=== PATIENT | female | born 1970 | race Caucasian/White ===

== ENCOUNTER 2019-06-19 16:39 | Emergency (ER) | payer OTHER, SELFPAY ==
[2019-06-19 16:42] VITALS: BP 133/74; PULSE 83; RESP 18; TEMP 36.4; O2SAT 99
--- NOTE | 2019-06-19 16:47 | ED.GENADUL_ITS ---
Discharge Plan Disposition Patient Disposition: HOME Condition: Stable Discharge Details Chief Complaint: Orthopedic Clinical Impression: Strain of left knee Primary Care Provider: Leo Hunter ED Provider: Milvia Duong Home Meds and New Rx's Prescriptions: Continued Premphase 1 EACH tablet 1 tab-cap PO DAILY RF: 0 ibuprofen 800 MG tablet 800 mg PO TID RF: 0 lamotrigine 25 mg Tablet 75 mg PO RF: 0 Discharge Instructions Instructions: Knee Sprain (ED) Additional Instructions: Rest, ice, and elevate the affected area as much as possible. Alternate tylenol and motrin as needed and directed for pain. Follow-up with your primary care doctor in 1 week for reevaluation and for re ferral to physical therapy if symptoms do not improve or worsen. Return to the emergency department with any worsening or new concerning symptoms. 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 States the pain only occurs when she is crossing her left knee over her right leg. She has been taking ibuprofen 800 mg. She denies any bony injury. Left knee normal to inspection. She has reproducible pain with varus stress. No evidence of trauma or cellulitis. No ligamentous laxity. Neurovascular intact. Discussed with patient that this appears consistent likely with knee strain versus arthritis. She was offered an x-ray but declines. Advised on importance of rest, ice, elevate, Bruce wrap and NSAIDs and Tylenol. Advised to follow-up with her primary care doctor for evaluation and for referral to physical therapy if symptoms do not improve or worsen. Usual and customary return precautions given prior to discharge. Discussed with patient that I do not see an indication for MRI at this time, but if her symptoms persist or worsen, this could be a consideration. HPI General Mode of arrival: ambulatory . Date/Time Provider Initiated Documentation: 06/19/19 16:40 . Limitations to Documentation: no limitations . Information obtained by: patient . History of Present Illness 49 year old F presents to the emergency department with the chief complaint of Left knee pain, Quality is described as aching, and is localized to the left and lower extremity (Knee). Patient reports no radiation. Patient started experiencing this week(s) (3) and it has been intermittent. Rest improves symptom(s), Movement worsens symptoms (When attempting to cross leg and put left foot onto right knee) . Patient notes no other symptoms.. Patient did receive the following treatments prior to arrival, none Related Data Home Medications Medication Instructions Recorded Confirmed ibuprofen 800 mg PO TID 07/11/12 06/19/19 Premphase 1 tab-cap PO DAILY tab-cap 09/28/15 06/19/19 lamotrigine 75 mg PO 06/19/19 Allergies Allergy/AdvReac Type Severity Reaction Status Date / Time No Known Allergies Allergy Unverified 06/19/19 16:47 General Stated Complaint: Orthopedic FLAQUITA: 3 Review of Systems All systems reviewed & are unremarkable except as noted in HPI and below PFSH Medical History (Updated 06/19/19 @ 17:31 by Milvia Duong DO) Depression longstanding use of Wellbutrin. H/O postmenopausal hormone replacement therapy 2014 initiated by PCP in hopes of improving pt's mood. Stopped 09/2015 after PMB. Tobacco use Surgical History (Updated 02/05/18 @ 14:34 by Fitly MD) section foot surgery fix nerves in heel. Ligation of fallopian tube at time of C/S Family History Mother , lung CA No problems noted. Brother , Diabetes No problems noted. Social History Smoking/Tobacco Use Status: Current every day Drug use: Never Do you feel safe at home: Yes Exam Const General: cooperative, healthy appearing and no acute distress [facility] Head: normal to inspection Mouth: oral mucosae normal Eyes General: appearance normal, both eyes and all related structures Neck Neck: normal visual inspection Resp Effort & Inspection: normal respiratory effort and able to speak in complete sentences Cardio Rate: regular rate Skin General skin exam: no rashes or lesions noted Neuro General: alert, awake and oriented x3 Motor: muscle tone normal throughout Extrem General: normal to inspection and full ROM Other: Left knee: Pain with varus stress. Negative anterior and posterior drawer test. Negative Tanisha's test. No pain with valgus stress. Left DP and PT pulses intact. No evidence of edema, ecchymosis, erythema. No li gamentous laxity. Posterior knee normal to palpation. No evidence of mass. No left calf swelling or tenderness. Psych Appearance: grossly normal Affect: normal affect Course Vital Signs Vital signs: Vital Signs Temperature 97.5 F L 06/19/19 16:42 Pulse 83 06/19/19 16:42 Respiratory Rate 18 06/19/19 16:42 Blood Pressure 133/74 06/19/19 16:42 Pulse Oximetry 99 06/19/19 16:42 Temperature 97.5 F L 06/19/19 16:42 Temperature Source Skin 06/19/19 16:42 Pulse 83 06/19/19 16:42 Respiratory Rate 18 06/19/19 16:42 Blood Pressure 133/74 06/19/19 16:42 Blood Pressure Position Sitting 06/19/19 16:42 Pulse Oximetry 99 06/19/19 16:42 Oxygen Delivery Method Room Air 06/19/19 16:42 Oxygen Flow Rate 0 06/19/19 16:42 Pain Level 9 06/19/19 16:42
[2019-06-19 17:41] VITALS: BP 133/74; PULSE 83; RESP 18; TEMP 36.4; O2SAT 99
== END 2019-06-19 17:40 | disposition home or self-care (01) ==
PROVIDERS: Emergency Provider Physician Assistant; PCP Family Medicine
DX: S83.92XA Sprain of unspecified site of left knee, initial encounter (principal); X50.0XXA Overexertion from strenuous movement or load, initial encounter
CPT/HCPCS: 99282

== ENCOUNTER 2019-09-09 13:01 | Outpatient (CLI) | payer OTHER, SELFPAY ==
--- NOTE | 2019-09-09 15:57 | DI.RAD_ITS ---
EXAM: XR KNEE LT 3V AP,LAT,JACKSON CLINICAL HISTORY: LT KNEE PAIN, M25.562. TECHNIQUE: 2D digital imaging was performed. COMPARISON: CR CHEST 2 VIEWS PA,LAT from 06/15/2014 FINDINGS: BONES: No acute fracture is present. No bony destructive lesion is seen. JOINTS: The knee is normally aligned. There does appear to be a small joint effusion. SOFT TISSUE: Normal. IMPRESSION: Possible small joint effusion. DATA REPOSITORY: RADIATION DOSE DELIVERED:
== END 2019-09-09 13:21 ==
PROVIDERS: PCP Family Medicine; Visit Provider Nurse Practitioner Family
DX: M25.562 Pain in left knee (principal); M25.462 Effusion, left knee
CPT/HCPCS: 73562

== ENCOUNTER 2020-05-01 17:21 | Emergency (ER) | payer OTHER, SELFPAY ==
[2020-05-01 17:26] VITALS: BP 159/99; PULSE 81; RESP 16; TEMP 36.3; O2SAT 97
--- NOTE | 2020-05-01 17:45 | DI.RAD_ITS ---
EXAM: XR KNEE LT 3V AP,LAT,JACKSON CLINICAL HISTORY: Hx of lateral meniscus tear, increase pain. TECHNIQUE: 2D digital imaging was performed. COMPARISON: CR XR KNEE LT 3V AP,LAT,JACKSON from 09/09/2019 FINDINGS: There is no evidence of acute fracture or obvious joint effusion. However, there are small calcific densities seen in the soft tissues just off the outer aspect of the medial femoral condyle and there is some soft tissue swelling in the region of the medial collateral ligament. This may indicate an e lement of Cadence Stieda type injury. Benign bone island again noted at the diaphysis-metaphysis junction of the proximal tibia. IMPRESSION: Abnormal calcific densities seen posteromedially in the soft tissues lateral to the medial femoral co ndyle, possibly indicate an element of injury to the posterior aspect of the medial collateral ligame nt. If clinically indicated follow-up MRI can be performed for added specificity. DATA REPOSITORY: RADIATION DOSE DELIVERED:
--- NOTE | 2020-05-01 17:49 | ED.GENADUL_ITS ---
Discharge Plan Disposition Patient Disposition: HOME Condition: Stable Discharge Details Clinical Impression: Knee pain, left Primary Care Provider: Leo Hunter ED Provider: Mariposa Soto Home Meds and New Rx's Prescriptions: No Action ibuprofen 800 MG tablet 800 mg PO TID RF: 0 lamotrigine 25 mg Tablet 75 mg PO RF: 0 cholecalciferol (vitamin D3) [Vitamin D3] 50 mcg (2,000 unit) Capsule 2,000 unit PO DAILY RF: 0 Discharge Instructions Instructions: Knee Pain (ED) Additional Instructions: Wear splint as directed, rest ice compression elevation. Please take Tylenol or Ibuprofen with food every 4-6 hours as needed for pain and swelling. Follow up with primary care provider in 3-5 days. Return to ED sooner if any worsening or concerns. Increase oral fluids. Follow-up with orthopedics as needed for further evaluation. Weightbearing as tolerated. Referrals: Leo Hunter [Primary Care Provider] - Ezekiel Hines MD [ [facility] STAFF PHYSICIAN] - Medical Decision Making At this time there is no significant deformity or swelling. Discussed that for meniscus tear as it is usually conservative treatment such as rest ice compression and elevation. Toe-touch weightbearing as needed. Discussed that the only way to truly evaluate the meniscus is an MRI which we do not have at this time. We will start with x-rays and ice. Imaging protocol: XR Left knee. Views: 3 views. COMPARISON: CR XR KNEE LT 3V AP,LAT,JACKSON 09/09/2019 3:59 PM FINDINGS: Bones/joints: No acute fracture or dislocation. No significant change in joint spaces of the medial or lateral compartment. Incidental note is made of a posterior fabella. Soft tissues: Normal. IMPRESSION: No acute fracture or dislocation. No significant change in the medial or lateral knee compartments since the prior study. Thank you for allowing us to participate in the care of your patient. Dictated and Authenticated by: Valarie Cid MD Discussed x-ray results with patient who verbalizes understanding. Discussed home care rest ice compression elevation alternating ibuprofen and Tylenol. Patient was given a hinged knee brace prior to discharge demonstrated on use. She does verbalize understanding. I did give her the phone number for our activity therapy specialist however since she had the meniscus repair done in [place] I also encouraged her to follow-up with her own orthopedic doctor. Discussed home care and follow-up as needed. This time there is no emergent condition and evaluation that needs to be treated today. Patient remained hemodynamically stable throughout stay, this text was generated using [employer] dictation system, please disregard any oddities of phrase or misspellings. HPI General Mode of arrival: ambulatory . Date/Time Provider Initiated Documentation: 05/01/20 17:35 . Limitations to Documentation: no limitations . Information obtained by: patient . HPI Narrative: 50-year-old female presents to the ER with chief complaint of left knee pain. She is status post meniscus repair which was done in [place] approximately 6 months ago. She states that she was at work lifting a heavy box and twisted where she noted acute left knee pain. Since then she has had increased pain with weightbearing and some lateral posterior tenderness. She describes this as constant. Related Data Home Medications Medication Instructions Recorded Confirmed ibuprofen 800 mg PO TID 07/11/12 05/01/20 lamotrigine 75 mg PO 06/19/19 cholecalciferol (vitamin D3) 2,000 unit PO DAILY 05/01/20 05/01/20 [Vitamin D3] Allergies Allergy/AdvReac Type Severity Reaction Status Date / Time No Known Allergies Allergy Unverified 05/01/20 17:30 General Stated Complaint: Orthopedic FLAQUITA: 4 Review of Systems All systems reviewed & are unremarkable except as noted in HPI and below Musculoskeletal Musculoskeletal: Reports arthralgias (Left knee pain, hx of meniscus repair) [facility] Medical History Depression longstanding use of Wellbutrin. H/O postmenopausal hormone replacement therapy 2014 initiated by PCP in hopes of improving pt's mood. Stopped 09/2015 after PMB. Tobacco use Surgical History section foot surgery fix nerves in heel. Ligation of fallopian tube at time of C/S Family History Mother , lung CA No problems noted. Brother , Diabetes No problems noted. Social History Smoking/Tobacco Use Status: Current every day Tobacco Type: cigarettes Smoking risk assessment performed?: Yes Alcohol Intake: never Drug use: Never Substance use type: does not use Do you feel safe at home: Yes Do you feel safe in your relationship?: Yes Exam Extrem Left lower extremity: full ROM, normal capillary refill, no joint enlargement and knee Details: tenderness (Left lateral posterior tenderness) Location: of the lateral joint line and other (Healed surgical incisions noted); no swelling, no deformity and no unusual warmth; no cyanosis and no edema Course Vital Signs Vital signs: Vital Signs Temperature 36.3 C L 05/01/20 17:26 Pulse 81 05/01/20 17:26 Respiratory Rate 16 05/01/20 17:26 Blood Pressure 159/99 H 05/01/20 17:26 Pulse Oximetry 97 05/01/20 17:26 Temperature 36.3 C L 05/01/20 17:26 Temperature Source Skin 05/01/20 17:26 Pulse 81 05/01/20 17:26 Respiratory Rate 16 05/01/20 17:26 Respiratory Effort Non-Labored 05/01/20 17:26 Blood Pressure 159/99 H 05/01/20 17:26 Blood Pressure Position Sitting 05/01/20 17:26 Pulse Oximetry 97 05/01/20 17:26 Oxygen Delivery Method Room Air 05/01/20 17:26 Oxygen Flow Rate 0 05/01/20 17:26 Pain Level 8 05/01/20 17:42
--- OUTSIDE RECORDS SUMMARY | 2020-05-01 18:34 | XMS_ITS | Encounter Summary ---
:1970 Author Care Team Providers Name Role Phone Lili Kaur NP Primary Care Provider Unavailable Reason for Visit Mood swings; Left knee problem Assessment and Plan 1. Mood swings Tolerating 75mg Lamictal but c ontinues some mood swings. Will increase lamictl to 100mg. in 2 divided doses. ? lamotrigine 25 mg tablet 2. Active or passive immunizatio n 3. Pain in left knee Resolved with arthroscopic laura steffanie. 4. Foot pain follow up podiatry. Stop melox icam since needs to take Ibuprofen with medication to manage foot pain. 5. Nicotine dependence Retry Chantix since was effect kadie to help quit in past. Advised of potential adverse effects. ? Chantix Starting Month Box 0.5 mg (11)-1 mg (42) tablets in dose pack ? Chantix Continuing Month B ox 1 mg tablet Discussion Note: None recorded.Patient educational handouts: No information available. Plan of Care Reminders Provider Appointments Follow up 06/13/2020 Manfred Hicks 20 1:20PM AMISH Kaur Lab None ? ? recorded. Referral None ? ? recorded. Procedures None ? ? recorded. Surgeries None ? ? recorded. Imaging None ? ? recorded. Medications Name Start Date ? ? Chantix 1 mg tablet ? TAKE 1 TABLET BY MOUTH TWICE DAILY Chantix Starting Month Box 0.5 mg (11)-1 mg (42) table ts in dose pack ? TK PO PER INSTRUCTIONS ON PACKAGE ibuprofen 800 mg tablet ? TAKE 1 TABLET BY MOUTH THREE TIMES A DAY IF NEEDED lamotrigine 25 mg tablet ? TAKE 2 TABLET BY MOUTH twice DAILY Vitamin D3 ? 2000 ui qd Notes: reviewed verbally with pt -03/11/2020 Medications Administered None recorded. Vitals Height Weight BMI Blood Pressure 5 ft 4 in 270 lbs 4 oz 46.4 kg/m2 128/78 mm[Hg] Results Lab Results None recorded. Allergies Code Code System Name Reaction Severity Onset NKDA ? ? ? Problems Name Status Onset Date Source ? Mood Swings Active 03/03/2018 ? Verruca Vulgaris Active ? History Obesity Active ? History Severe Obesity Active ? History Nicotine Dependence Active ? History Depressive Disorder Active ? History Migraine Active ? History Postmenopausal Bleeding Active ? History Atopic Dermatitis Active ? History Neck Pain Active ? History Ganglion of Hand Active ? History Plantar Fascial Fibromatosis Active ? His tory Snoring Active ? History Reduced Libido Active ? History Menopause Active ? History Procedures Date Name Performed by ? 04/22/2009 Ankle/Foot Surgery Information not satinder silva Notes: left foot Plantar Fasciitis Vaccine List Vaccine Type Tdap 06/30/2013?0.5 mL Social History Tobacco Smoking Status Current Every Day Smoker Notes: 15 cigarettes daily Alcohol intake Occasional Live alone or with others? with others Are you currently employed? Y Smokeless Tobacco Status Never used smokeless tobacco Blind or serious difficulty N seeing Language Difficulties No Chewing tobacco none Most Recent Tobacco Use 09/01/2018 Screening Hard of hearing or deaf in one N or both ears? E-cigarette/Vape Status Never used electronic cigarettes Advance directive N Caffeine intake Notes: 3 cups of coffee a day Drug Use N Tobacco-years of use 32 Family History Relation Problem Onset Age of Age Notes Mother Mental health (No N/A Adopted by Miki knight problem Information) Grandmother, morris s no contact with biological moth er Functional Status No Impairment. Past Encounters 03/11/2020 Mood Swings; Active or Passive Immunizat ion; Pain in Left Knee; Foot Pain; Nicotine Dependence Lili Kaur, RESIDENCE LIFE COORDINATOR: [address] [facility] [place] [address], Ph. History of Present Illness ? Knee Reported By: Patient HPI: Location: left. Quality: ; u nable to kneel on ground- other than that, feels fine. Severity: no pedrito n, pain level 0/10. Duration: months. Alleviating Factors: ; surge ry. Associated Symptoms: no weakness, no numbness, no tingling, no sw elling, no redness, no warmth, no ecchymosis, no catching/lock ing, no popping/clicking, no grinding, no instability, no radiation do wn leg, no drainage, no fever, no chills, no weight loss, no change in nahomi wel/bladder habits. Previous Surgery: surgical procedure:; November 2019. Prior Imaging: x ray, MRI. Previous PT: helped a little. Work Re lated: no. Working: regular duty Notes: <p>
</p> ? Anxiety/Depression_ Reported By: Patient HPI: Quality: ; 'no patience for stupid people' 'snappy'. Severity: denies suicidal ideations, able to maintain relationships, does not interfere with activities of daily colton ing. Onset/Timing: months ago. Context: major life stressors. Modify ing Factors: medications as directed. Associated Symptoms: denies homicidal ideations, no significant weight gain, no significant weight loss, no visual/auditory hallucinations, no delusions, no shortness of b reath, no anxiety, no panic, appetite good, high irritability, hostility , hypersensitivity, restlessness/agitation, sleep disturbances Notes: <p>
</p> Note: <p>Here for a follow up on mood and knee pain. Pt is still having pain. She went to PT once then pandemic happened and all her appts were cancelled. She was given home exercises and is doingthose as directed by PT. PT Recommended a consult with [facility] before COVID. Once open, returned to PT. Now knee is much better. Awaiting foot surgery w/ Dr. Winston. Orthotics making worse. Feelslike bump in middle of foot.</p><p>
</p><p>
</p><p >
</p> Review of Systems ? Comprehensive General Adult ROS Reported By: Patient Constitutional: Constitutional: no fever, no chills Cardiovascular: Cardiovascular: no chest pedrito n, no palpitations, no ankle swelling Respiratory: Respiratory: no cough, no wh eezing, no shortness of breath Gastrointestinal: Gastrointestinal: no nausea, no vomiting, no GERD Musculoskeletal: Musculoskeletal: arthralgias /joint pain, difficulty walking Integumentary: Skin: no rashes, no non-heal ing areas Neurologic: Neurologic: no headaches Psychiatric: Psych: no depression, no anx iety, mood swings Physical Exam ? Musculoskeletal and Joint Ex am, Comprehensive PE (female) Reported By: Patient Constitutional: General Appearance: healthy- appearing, morbidly obese. Level of Distress: no apparent distre ss. Ambulation: ambulating normally Respiratory: Respiratory effort: unlabore d respirations, no use of accessory muscles. RUL Auscultation: b reath sounds normal, good air movement, clear to auscultation except as noted. RLL Auscultation: breath sounds normal, good air move ment, clear to auscultation except as noted. SANGEETA Auscultation: tracey ath sounds normal, good air movement, clear to auscultation except as noted. LLL Auscultation: breath sounds normal, good air move ment, clear to auscultation except as noted Cardiovascular: Apical Impulse: not displace d. Heart Auscultation: regular rate and rhythm (RRR), no murmurs, no rubs, no gallops Neurologic: Orientation: oriented to per son, place, time and situation. Memory: recent memory normal, remote memory normal. Cranial Nerves: 2-12 grossly intact. Sensation: g rossly intact. Coordination and Cerebellum: [id number] i ntact, no tremor, negative Romberg Psychiatric: Insight: good insight, good judgment. Mental Status: depressed Notes: <p>limping when first get up to walk</p>
--- OUTSIDE RECORDS SUMMARY | 2020-05-01 18:34 | XMS_ITS ---
:1970 Author Care Team Providers Name Role Phone LILI KAUR NP Primary Care Provider Unavailable Allergies Code Code System Name Reaction Severity Status Onset NKDA ? Medications Name Status Start Date Stop Date ? ? amoxicillin 875 mg tablet Completed 01/31/20172016 1 (one) Tablet: every 12 hours apple cider vinegar Completed ? 03/06/2019 daily [employer] 0.025 % topical gel Completed 08/10/20102013 1 Gel: at bedtime Chantix 1 mg tablet Active ? Not availabl e TAKE 1 TABLET BY MOUTH TWICE DAILY Chantix Starting Month Box 0.5 mg (11)-1 mg (42) tablets in dose pack Active ? Not available TK PO PER INSTRUCTIONS ON PACKAGE citalopram 40 mg tablet Completed 08/02/2010 07/01/19 14 one Tablet: qd - daily hydrocodone 5 mg-acetaminophen Completed ? 05/11/2019 325 mg tablet ibuprofen 800 mg tablet Active ? Not avai lable TAKE 1 TABLET BY MOUTH THREE TIMES A DAY IF NEEDED lamotrigine 100 mg tablet Completed ? 2018 Take 1 tablet every day by oral route for 30 days. lamotrigine 25 mg tablet Active ? Not mai ilable TAKE 2 TABLET BY MOUTH twice DAILY meloxicam 7.5 mg tablet Completed ? 03/11/20 20 metronidazole 500 mg tablet Completed 12/14/201411/21 4 Tablet: one time dose Premphase 0.625 mg(14)/0.625 mg-5mg(14) tablet Completed 0 06/06/2015 10/10/2015 1 (one) Tablet: daily Prozac 20 mg capsule Completed 10/10/2015 01/31/2017 1 (one) Capsule Capsule: daily Topamax 100 mg tablet Completed 12/29/2015 01/31/2017 1 (one) Tablet: at bedtime Vitamin D3 Active ? Not available 1999 ui qd Wellbutrin XL 150 mg 24 hr tablet, extended release Completed 10/04/2014 10/10/2015 1 (one) Tablet ER 24HR Tablet ER 24HR: daily Wellbutrin XL 300 mg 24 hr tablet, extended release Completed 10/10/2015 01/31/2017 1 (one) Tablet ER 24HR: daily Notes: reviewed verbally with pt -03/11/2020 Problems Name Status Onset Date Source ? Mood Swings Active 03/03/2018 ? Verruca Vulgaris Active ? History Infection by Trichomonas Unknown ? History Obesity Active ? History Severe Obesity Active ? History Nicotine Dependence Active ? History Depressive Disorder Active ? History Migraine Active ? History Pharyngitis Unknown ? History Sinusitis Unknown ? History Postmenopausal Bleeding Active ? History Atopic Dermatitis Active ? History Neck Pain Active ? History Ganglion of Hand Active ? History Plantar Fascial Fibromatosis Active ? His tory Symptom of Skin and Integumentary Tissue Unknown ? History Snoring Active ? History Reduced Libido Active ? History Adult Health Examination Unknown ? History Menopause Active ? History Mental Disorder Unknown ? History Procedures Date Name Performed by ? 04/22/2009 Ankle/Foot Surgery Information not satinder silva Notes: left foot Plantar Fasciitis 09/07/2019 XR, Knee, 3 View Xray [facility] [address] [address], [place] [address] (Work Place) Results Lab Results Date Name Specimen Result Interpretation Description Value Range Status Address ? 03/03/2018 BMP, Serum or S - g/r 93 mg/dL 74-106 [place] [facility] [place] Plasma mg/dL [facility] : [address] ? ? S - Bun 15 mg/dL 7-17 Final North mg/dL [facility] (Internal) : [address] ? ? S - Crea 0.90 mg/dL 0.52-1. Final [place] 04 [facility] mg/dL [facility] (Internal) : [address] ? ? S - Ca 9.4 mg/dL 8.4-10. Final North 2 mg/dL [facility] (Internal) : [address] ? ? S - Na 142 mmol/L 137-145 Final [place] mmol/L [facility] (Internal) : [address] ? ? S - K 4.1 mmol/L 3.5-5.1 Final [place] mmol/L [facility] ([facility] : [address] ? ? S - Cl 104 mmol/L 98-107 Final [place] mmol/L [facility] (Internal) : [address] ? ? S High Tco2 31.0 mmol/L 22.0-30 Final Nort h .0 [facility] mmol/L Hospital [facility] (Internal) : [address] 03/03/2018 TSH, Serum or S - Tsh 2.37 0.47-4. Final [place] Plasma u[IU]/mL 68 [facility] u[IU]/m Hospital Lab L (Internal) : [address] ? Venipuncture ? Location Left ? ? P _nc Primary [facility]tecubital [facility] [place]: [address], [place] ? ? ? Needle 21g ? ? P_nc Prim myra Vacutainer Care [place]: [address], [place] ? ? ? Number of 1 ? ? P_nc P rimary Attempts Care [place]: [address], [place] ? ? ? Successful Yes ? ? P_nc Primary [facility] [place]: [address], [place] ? ? ? Dressing Pressure ? ? P_nc Primary Band-aid Care [place]: [address], [place] ? ? ? Initials LMK ? ? P_nc Pr imary Care [place]: [address], [place] Past Encounters 03/11/2020 Mood Swings; Active or Passive Immunizat ion; Pain in Left Knee; Foot Pain; Nicotine Dependence Lili Kaur, CRE[employer] TEAM MEMBER: [address], [place] [address], Ph. 09/07/2019 Mood Swings; Pain in Left Knee Lili Kaur, CREW TEAM MEMBER: [address], [place] [address], Ph. 07/27/2019 Pain in Left Knee Lili Kaur [employer] TE[employer] MEMBER: [address], [place] [address], Ph. 06/26/2019 Pain in Left Knee Lili Kaur, CRE[employer] TEAM MEMBER: [address] [place] [address], Ph. 03/06/2019 Mood Swings; Plantar Fascial Fibromatosi s; Easy Bruising Lili Kaur, CRE[employer] TE[employer] MEMBER: [address] [place] [address], Ph. 01/02/2019 Mood Swings; Administration of Pneumococ ren Vaccine; Obesity; Bereavement; Skin Tag Lili Kaur, CRE[employer] TEAM MEMBER: [address] [place] [address], Ph. Social History Tobacco Smoking Status Current Every Day Smoker Notes: 15 cigarettes daily Vaccine List Vaccine Type Tdap 06/30/2013?0.5 mL Plan of Care Reminders Provider Appointments None ? ? recorded. Lab None ? ? recorded. Referral None ? ? recorded. Procedures None ? ? recorded. Surgeries None ? ? recorded. Imaging None ? ? recorded. Vitals 03/11/2020 01:20PM Follow Up 20 Height Weight BMI Blood Pressure 162.56 cm 122.58 kg 46.4 kg/m2 128/78 mm[Hg] 09/07/2019 01:20PM Follow Up 20 Height Weight BMI Blood Pressure 162.56 cm 122.92 kg 46.5 kg/m2 122/80 mm[Hg] 07/27/2019 09:20AM Follow Up 20 Height 162.56 cm 06/26/2019 04:00PM Acute 20 Height Weight BMI Blood Pressure 162.56 cm 124.19 kg 47 kg/m2 120/82 mm[Hg] 03/06/2019 01:20PM Follow Up 20 Height Weight BMI Blood Pressure 162.56 cm 124.74 kg 47.2 kg/m2 130/68 mm[Hg] 01/02/2019 01:20PM Follow Up 20 Height Weight BMI Blood Pressure 162.56 cm 125.19 kg 47.4 kg/m2 112/80 mm[Hg] 09/01/2018 10:40AM Follow Up 20 Height Weight BMI Blood Pressure 162.56 cm 123.83 kg 46.9 kg/m2 120/84 mm[Hg] 03/03/2018 03:20PM Follow Up 20 Height Weight BMI Blood Pressure 162.56 cm 126.55 kg 47.9 kg/m2 128/88 mm[Hg] 12/02/2017 02:30PM Follow Up 30 Height Weight BMI Blood Pressure 162.56 cm 126.05 kg 47.7 kg/m2 130/80 mm[Hg] 01/31/2017 Height Weight Blood Pressure 162.56 cm 124.01 kg 122/80 mm[Hg] 12/05/2015 Height Weight Blood Pressure 162.56 cm 111.13 kg 112/84 mm[Hg] 10/10/2015 Height Weight Blood Pressure 162.56 cm 115.67 kg 120/90 mm[Hg] 09/05/2015 Blood Pressure 122/92 mm[Hg] 06/06/2015 Height Weight Blood Pressure 162.56 cm 111.13 kg 126/90 mm[Hg] 03/07/2015 Height Weight Blood Pressure 162.56 cm 108.86 kg 126/84 mm[Hg] 12/06/2014 Height Weight Blood Pressure 162.56 cm 111.58 kg 120/92 mm[Hg] 10/04/2014 Blood Pressure 114/80 mm[Hg] 07/27/2014 Height Weight Blood Pressure 162.56 cm 114.76 kg 138/92 mm[Hg] 05/10/2014 Height Weight Blood Pressure 162.56 cm 115.21 kg 118/84 mm[Hg] 06/30/2013 Height Weight Blood Pressure 162.56 cm 109.77 kg 118/92 mm[Hg] 08/02/2010 Height Weight Blood Pressure 162.56 cm 96.62 kg 122/82 mm[Hg] 06/05/2010 Weight Blood Pressure 96.62 kg 134/90 mm[Hg]
--- NOTE | 2020-05-01 19:38 | DI.VRAD_ITS ---
PROCEDURE INFORMATION: Exam: XR Left Knee Exam date and time: 05/01/2020 7:30 PM Age: 50 years old Clinical indication: Knee; Left; Prior surgery; Surgery date: 6+ months; Surgery type: HX of lateral meniscus tear, increased pain TECHNIQUE: Imaging protocol: XR Left knee. Views: 3 views. COMPARISON: CR XR KNEE LT 3V AP,LAT,JACKSON 09/09/2019 3:59 PM FINDINGS: Bones/joints: No acute fracture or dislocation. No significant change in joint spaces of the medial or lateral compartment. Incidental note is made of a posterior fabella. Soft tissues: Normal. IMPRESSION: No acute fracture or dislocation. No significant change in the medial or lateral knee compartments since the prior study. Dictated and Authenticated by: Valarie Cid MD. Ordering:FIONA Monge MD
== END 2020-05-01 19:55 | disposition home or self-care (01) ==
PROVIDERS: Emergency Provider Registered Nurse Emergency; PCP Family Medicine
DX: M25.562 Pain in left knee (principal); X50.9XXA Other and unspecified overexertion or strenuous movements or postures, initial encounter
CPT/HCPCS: 73562; 99283

== ENCOUNTER 2021-08-24 12:04 | Outpatient (CLI) | payer OTHER, SELFPAY ==
--- NOTE | 2021-08-24 09:15 | DI.RAD_ITS ---
Exam(s) XR TIB/FIB LT EXAM: XR TIB/FIB LT CLINICAL HISTORY: left leg pain TECHNIQUE: COMPARISON: No exams were available for comparison FINDINGS: Two views were obtained. There appear to be mild degenerative changes of the joints of the knee and ankle. No other bony or soft tissue abnormality seen. IMPRESSION: RADIATION DOSE DELIVERED: Total DLP
== END 2021-08-24 12:05 | disposition home or self-care (01) ==
LOC: DIORS 12:05
PROVIDERS: PCP Family Medicine; Visit Provider Student in an Organized Health Care Education/Training Program
DX: M79.605 Pain in left leg (principal); M17.12 Unilateral primary osteoarthritis, left knee; M19.072 Primary osteoarthritis, left ankle and foot
CPT/HCPCS: 73590

== ENCOUNTER 2021-12-06 01:24 | Outpatient (CLI) | payer OTHER, SELFPAY ==
--- NOTE | 2021-12-06 07:45 | DI.MRI_ITS ---
Exam(s) MR LOWER EXTREMITY LT WO EXAM: MR LOWER EXTREMITY LT WO CLINICAL HISTORY: PAIN,strain of gastrocnemius muscle lt lower ext,s86.112a. TECHNIQUE: Multiplanar multisequence MRI was performed. COMPARISON: No exams were available for comparison FINDINGS: MR examination of the leg was performed according to the usual protocol. There is a small knee joint effusion. The imaging field is insufficiently small to reliably evaluate the internal architecture of the knee. There is subtle slightly increased signal on T2 fat sat imaging in the proximal gastrocnemius muscula ture involving both lateral and to a lesser degree the medial gastrocnemius muscles. No tendinous te ar seen. Attachments to the femur appear intact. No other muscular, or tendinous signal abnormality seen. No bony signal abnormality seen. IMPRESSION: Findings consistent with minimal strain of lateral and medial gastrocnemius muscles in the upper calf . DATA REPOSITORY:
== END 2021-12-06 01:44 ==
LOC: DI 01:24
PROVIDERS: PCP Family Medicine; Visit Provider Student in an Organized Health Care Education/Training Program
DX: M79.662 Pain in left lower leg; S86.112A Strain of other muscle(s) and tendon(s) of posterior muscle group at lower leg level, left leg, initial encounter
CPT/HCPCS: 73718

== ENCOUNTER 2022-01-29 01:44 | Outpatient (CLI) | payer OTHER, SELFPAY ==
--- NOTE | 2022-01-29 07:54 | DI.RAD_ITS ---
Exam(s) XR FOOT RT COMPLETE EXAM: XR FOOT RT COMPLETE CLINICAL HISTORY: foot pain,PLANTAR FASCITIS, M72.2. TECHNIQUE: 2D digital imaging was performed. Three views. COMPARISON: No exams were available for comparison FINDINGS: BONES: No acute fracture is present. No bony destructive lesion is seen. Prominent plantar calcaneal spur. Prominent spur at Achilles insertion. Mild degenerative changes tarsal region. Plantar arch is maintained. JOINTS: No dislocation present. SOFT TISSUE: Normal. IMPRESSION: Prominent heel spurs. DATA REPOSITORY: RADIATION DOSE DELIVERED:
--- NOTE | 2022-01-29 07:54 | DI.RAD_ITS ---
Exam(s) XR FOOT LT COMPLETE EXAM: XR FOOT LT COMPLETE CLINICAL HISTORY: foot pain s/p plantar fasciotomy,M72.2. TECHNIQUE: 2D digital imaging was performed. Three views. COMPARISON: CR XR FOOT RT COMPLETE from 01/29/2022 FINDINGS: BONES: No acute fracture is present. No bony destructive lesion is seen. Prominent plantar calcaneal spur. Small spur at Achilles insertion. Mild degenerative changes navicular cuneiform joints. Plan tar arch is maintained. JOINTS: No dislocation present. SOFT TISSUE: Normal. IMPRESSION: Heel spurs and mild degenerative changes. DATA REPOSITORY: RADIATION DOSE DELIVERED:
== END 2022-01-29 02:04 ==
LOC: DI 01:44
PROVIDERS: PCP Family Medicine; Visit Provider Podiatrist Foot & Ankle Surgery
DX: M79.671 Pain in right foot (principal); M79.672 Pain in left foot; M72.2 Plantar fascial fibromatosis; Z98.890 Other specified postprocedural states; M77.32 Calcaneal spur, left foot; M19.072 Primary osteoarthritis, left ankle and foot; M77.31 Calcaneal spur, right foot
CPT/HCPCS: 73630

== ENCOUNTER 2023-01-12 18:50 | Emergency (ER) | payer OTHER, SELFPAY ==
--- NOTE | 2023-01-12 19:00 | DI.RAD_ITS ---
Exam(s) XR KNEE RT 3V AP,LAT,JACKSON EXAM: XR KNEE RT 3V AP,LAT,JACKSON CLINICAL HISTORY: pain. TECHNIQUE: 2D digital imaging was performed of the right knee. Three views obtained. AP, lateral an d PA tunnel views were obtained. COMPARISON: No priors for comparison. FINDINGS: BONES: No acute fracture is present. No bony destructive lesion is seen. JOINTS: The knee is normally aligned. There are mild degenerative changes seen in the medial femoral tibial patellofemoral joints. There is a small joint effusion. SOFT TISSUE: Normal. IMPRESSION: Mild degenerative changes and a small joint effusion. DATA REPOSITORY: RADIATION DOSE DELIVERED:
[2023-01-12 19:04] VITALS: BP 145/79; PULSE 82; RESP 20; TEMP 37; O2SAT 99
--- NOTE | 2023-01-12 19:17 | ED.GENADUL_ITS ---
Discharge Plan Disposition Condition: Improving Discharge Details Chief Complaint: Orthopedic Clinical Impression: Knee pain Primary Care Provider: Leo Hunter ED Provider: Keenan Parra Home Meds and New Rx's Prescriptions: No Action albuterol sulfate 90 mcg/actuation HFA aerosol inhaler 2 puff inhalation Q6H PRN (Reason: shortness of breath or wheezing) Qty: 8.5 0RF Rx Instructions: 2 puffs every 6 hours as needed for sob/wheeze/cough ibuprofen 800 mg tablet 800 mg PO TID cholecalciferol (vitamin D3) [Vitamin D3] 50 mcg (2,000 unit) Capsule 2,000 unit PO DAILY Discharge Instructions Instructions: Knee Pain (ED) Additional Instructions: Continue to ice and elevate leg, use ibuprofen and/or acetaminophen for pain and swelling. Please follow close with your forestry extension specialist. Return to the emergency department for any worsening symptom Medical Decision Making 52-year-old female presents with atraumatic right knee pain over the past 3 weeks, of note had a recent left podiatry procedure and has been preferentially used her right lower extremity; afebrile nontoxic, range of motion intact with passive and active, no laxity no effusion. Consider muscle strain versus ligamentous sprain versus meniscal injury versus less likely dislocation or fracture, low suspicion for septic joint. Must also consider progressive osteoarthritis. Screening x-ray, analgesia anti-inflammatory. Patient has an orthopedic team that she will follow-up closely with in [place]. HPI General Date/Time Provider Initiated Documentation: 01/12/23 19:11 . HPI Narrative: 52-year-old female presents with 3 weeks of right knee pain no known trauma, of note patient had recent left podiatry procedure and has been preferentially using her right knee had history of a meniscal repair in her left knee remotely. No fevers no chills. No systemic signs of illness. Related Data Home Medications Medication Instructions Recorded Confirmed cholecalciferol (vitamin D3) 50 2,000 unit PO DAILY 05/01/20 05/02/22 mcg (2,000 unit) capsule (Vitamin D3) albuterol sulfate 90 mcg/actuation 2 puff inhalation Q6H PRN 10/05/21 05/02/22 aerosol inhaler shortness of breath or wheezing #8.5 grams ibuprofen 800 mg tablet 800 mg PO TID 09/27/22 01/11/23 Previous Rx's Medication Instructions Recorded albuterol sulfate 90 mcg/actuation 2 puff inhalation Q6H PRN 10/05/21 aerosol inhaler shortness of breath or wheezing #8.5 grams Allergies Allergy/AdvReac Type Severity Reaction Status Date / Time No Known Allergies Allergy Unverified 01/12/23 19:09 General Stated Complaint: Orthopedic FLAQUITA: 4 Review of Systems Narrative: Review of Systems Constitutional: negative Eyes: negative ENT: negative Cardiovascular: negative Respiratory: negative Gastrointestinal: negative : negative Musculoskeletal: Knee pain Skin: negative Neurologic: negative Psych: negative PFSH All Active Problems (Updated 01/12/23 @ 19:48 by Keenan Parra MD) Knee pain (Acute) Plantar fasciitis (Acute) Strain of gastrocnemius muscle of left lower extremity (Acute) Medical History Depression longstanding use of Wellbutrin. H/O postmenopausal hormone replacement therapy 2014 initiated by PCP in hopes of improving pt's mood. Stopped 09/2015 after PMB. Tobacco use Surgical History section foot surgery fix nerves in heel. Ligation of fallopian tube at time of C/S S/P arthroscopic partial lateral meniscectomy Left Knee S/P arthroscopic partial medial meniscectomy Left Knee Family History Mother , lung CA No problems noted. Brother , Diabetes No problems noted. Social History Smoking/Tobacco Use Status: Current every day Tobacco Type: cigarettes Smoking risk assessment performed?: Yes Alcohol Intake: never Drug use: Never Substance use type: does not use Do you feel safe at home: Yes Do you feel safe in your relationship?: Yes Exam Narrative Exam Narrative: Physical Examination General: alert, awake, cooperative, resting comfortably, no acute distress Extremities: Full range of motion both active and passive right knee flexion extension, ambulatory without assistance, no appreciable effusion or joint laxity, no warmth or crepitus, soft compartments sensate extremity Course Vital Signs Vital signs: Vital Signs Temperature 37 C 01/12/23 19:04 Pulse 82 01/12/23 19:04 Respiratory Rate 20 01/12/23 19:04 Blood Pressure 145/79 H 01/12/23 19:04 Pulse Oximetry 99 01/12/23 19:04 Temperature 37 C 01/12/23 19:04 Temperature Source Oral 01/12/23 19:04 Pulse 82 01/12/23 19:04 Respiratory Rate 20 01/12/23 19:04 Respiratory Effort Normal 01/12/23 19:10 Blood Pressure 145/79 H 01/12/23 19:04 Blood Pressure Position Sitting 01/12/23 19:04 Pulse Oximetry 99 01/12/23 19:04 Oxygen Delivery Method Room Air 01/12/23 19:04 Oxygen Flow Rate 0 01/12/23 19:04 Pain Level 8 01/12/23 19:04 Sign Out Sign Out Data: Sign Out Comment: atraumatic right knee pain; likely OA v sprain; pending xray knee, will follow with her primary ortho in [place] Last updated by Keenan Parra MD at 01/12/23 19:50 PAWSS Have you Been Recently Intoxicated or Drunk Within the Last 30 days?: No Have you Ever Experienced Previous Episodes of Alcohol Withdrawal?: No Have you ever Experienced Withdrawal Seizures?: No Have you ever Experienced Delirium Tremens(DT)s?: No Have you ever undergone Alcohol Rehabilitation Treatment (i.e, inpt ot outpatient treatment programs)?: No Have you ever Experienced Blackouts?: No Have you ever Combined Alcohol with other Downers within the last 90 days?: No Have you ever Combined Alcohol with any other Substance of Abuse during the last 90 days?: No Positive Blood Alcohol level on Presentation? [PCS.BAL]: No Evidence of Increased Autonomic Activity (i.e. HR>120, tremor, sweating, agitation, nausea)?: No Result: 0
[2023-01-12] MEDS: Ketorolac 15 MG/ML VIAL IM (19:39)
--- NOTE | 2023-01-12 20:54 | DI.VRAD_ITS ---
PROCEDURE INFORMATION: Exam: XR Right Knee Exam date and time: 01/12/2023 8:06 PM Age: 52 years old Clinical indication: Pain; Knee; Right TECHNIQUE: Imaging protocol: Radiologic exam of the right knee. Views: 3 views. COMPARISON: CR XR FOOT RT COMPLETE 01/29/2022 1:28 PM FINDINGS: Bones/joints: Mild degenerative joint narrowing of the medial joint and patellofemoral joint. Small joint effusion with nonspecific appearance. No fracture. No malalignment. No osteochondral lesions. Soft tissues: Unremarkable soft tissues. IMPRESSION: 1. Mild degenerative joint space narrowing. 2. Small joint effusion. 3. No acute skeletal change. 4. No acute soft tissue pathology. Dictated and Authenticated by: Yoseph Wells MD. Ordering:RUBY Hussein MD
--- NOTE | 2023-01-12 21:04 | W.EDPROG ---
Date of service: 01/12/23 Time of Service: 21:04 Medical Decision Making Patient was signed out to my colleague Dr. Angelica Aranda. Please refer to his HPI, physical exam, assessment and plan. At time of signout we are awaiting x-ray results. X-ray results show no evidence of acute fracture change. There is space narrowing, small joint effusion. No redness to suggest an infected joint. Patient is otherwise stable. She has crutches at home. Suspect worsening pain secondary to be from increased use as well as chronic age of the joint. Will recommend Voltaren gel at home, crutches to decrease weight burden on knee, and close follow-up with environmental permitting specialist. Discussed red flags which to return. I have extensively reviewed the treatment plan and discharge instructions with the patient. I have addressed all patient concerns at this time. The patient was made aware of what symptoms to monitor for that would warrant a return to the emergency department. Discussed the plan with the patient, they demonstrate verbal understanding and agreement with our assessment and plan at this time. The documentation in this chart was dictated using SAB[employer] dictation software. Please excuse any dictation errors. FINDINGS: Bones/joints: Mild degenerative joint narrowing of the medial joint and patellofemoral joint. Small joint effusion with nonspecific appearance. No fracture. No malalignment. No osteochondral lesions. Soft tissues: Unremarkable soft tissues. IMPRESSION: 1. Mild degenerative joint space narrowing. 2. Small joint effusion. 3. No acute skeletal change. 4. No acute soft tissue pathology. Thank you for allowing us to participate in the care of your patient. Dictated and Authenticated by: Yoseph Wells MD 01/12/2023 8:54 PM Eastern Time ([place] & [place]) Sign Out Sign Out Data: Sign Out Comment: atraumatic right knee pain; likely OA v sprain; pending xray knee, will follow with her primary ortho in [place] Last updated by Keenan Parra MD at 01/12/23 19:50 Discharge Plan Disposition Patient Disposition: Home Condition: Improving Discharge Details Clinical Impression: Knee pain Primary Care Provider: Leo Hunter ED Provider: Rafa Mary Home Meds and New Rx's Prescriptions: No Action albuterol sulfate 90 mcg/actuation HFA aerosol inhaler 2 puff inhalation Q6H PRN (Reason: shortness of breath or wheezing) Qty: 8.5 0RF Rx Instructions: 2 puffs every 6 hours as needed for sob/wheeze/cough ibuprofen 800 mg tablet 800 mg PO TID cholecalciferol (vitamin D3) [Vitamin D3] 50 mcg (2,000 unit) Capsule 2,000 unit PO DAILY Discharge Instructions Instructions: Knee Pain (ED) Additional Instructions: At this time your x-ray is negative for evidence of fracture however there is definitely joint disease. Continue to ice and elevate leg, use ibuprofen and/or acetaminophen for pain and swelling. Please follow close with your environmental permitting specialist. Return to the emergency department for any worsening symptom. If you notice any worsening of your symptoms, or any new symptoms such as vomiting, diarrhea, fever, chills, shortness of breath, chest pain, numbness, weakness, or fainting , please return immediately to the emergency department for reevaluation. Please follow up with your primary care provider as soon as possible for reassessment and reevaluation. As always, it was a pleasure participating in your medical care today. Referrals: Leo Hunter [Primary Care Provider] -
== END 2023-01-12 21:20 | disposition home or self-care (01) ==
PROVIDERS: Emergency Provider Student in an Organized Health Care Education/Training Program; PCP Family Medicine
DX: M25.561 Pain in right knee (principal); Z98.890 Other specified postprocedural states
CPT/HCPCS: 73562; 96372; 99284; 99283; J1885